=== PATIENT | male | born 1955 | race American Indian/Alaskan Native ===

== ENCOUNTER 2016-09-01 07:30 | Day surgery (SDC) | payer BC ==
[~2016-09-01 07:30] MED LIST: TETRACAINE 0.5% OS PRN
[2016-09-01] MEDS ORDERED: MYDRIACYL ONE (08:00)
[2016-09-01] MEDS: AK-Dilate OS SCH ×3 (09:08→09:21)
[2016-09-01] MEDS: VIGAMOX OS SCH ×3 (09:08→09:20)
[2016-09-01] MEDS: MYDRIACYL OS SCH ×3 (09:09→09:21)
--- NOTE | 2016-09-01 09:43 | Anesthesia Consultation ---
Anesthesia Consult and Med Hx Date of service: 09/01/16 - Airway Anesthetic Teeth Evaluation: Good ROM Head & Neck: Adequate Mental/Hyoid Distance: Adequate Mallampati Class: Class II Intubation Access Assessment: Probably Good - Pulmonary Exam CTA: Yes - Cardiac Exam Cardiac Exam: RRR - Pre-Operative Health Status ASA Pre-Surgery Classification: ASA1 Proposed Anesthetic Plan: MAC - Pulmonary Hx Smoking: No Hx Asthma: No Hx Sleep Apnea: No - Cardiovascular System Hx Hypertension: No Hx Coronary Artery Disease: No - Central Nervous System Hx Seizures: No CVA: No Hx Psychiatric Problems: No - Endocrine Hx Renal Disease: No Hx Cirrhosis: No Hx Insulin Dependent Diabetes: No Hx Thyroid Disease: No - Other Systems Hx Cancer: No
--- NOTE | 2016-09-01 09:43 | Anesthesia Day of Surgery ---
Anesthesia Day of Surgery - Day of Surgery Patient Examined: Yes Patient H&P Reviewed: Yes Patient is NPO: Yes
[2016-09-01] MEDS ORDERED: SUBLIMAZE ONE (10:13)
[2016-09-01] MEDS ORDERED: VERSED ONE (10:14)
[2016-09-01] MEDS ORDERED: NACL 0.9% IR ONE (10:37)
--- NOTE | 2016-09-01 10:57 | Operative Report ---
Operative Report Operative Report: PATIENT'S NAME: DATE OF : DATE OF SURGERY: 09/01/2016 PREOPERATIVE DIAGNOSIS: Cataract left eye POSTOPERATIVE DIAGNOSIS: Same OPERATIVE PROCEDURE: Phacoemulsification with intraocular lens implantation, left eye SURGEON: Adela Kline M.D. ADVANCED CLINICAL SPECIALIST SURGEON: Shahana Lens: AO60 13.5 D ANESTHESIA: Monitored anesthesia care in combination with topical and intracameral anesthesia because of the established specific risk of reflux, arrhythmias, or anxiety attacks associated with ocular manipulation, as well as the difficulty of the credit risk management director to manage such potentially catastrophic events while simultaneously attempting to complete the surgical procedure and was deemed necessary for the patient's safety to have an Cook Helper Vegetable present during the procedure whenever possible. An Cook Helper Vegetable was utilized to regulate the intravenous sedation of the patient so the patient was cooperative yet not asleep in order for the patient to successfully maintain fixation of the eye on the operating light of the microscope. COMPLICATIONS: No surgical complications No blood loss. ALLERGIES: quinine PROGNOSIS: Excellent INDICATIONS FOR SURGERY: The patient is undergoing surgery in the hopes of eliminating or improving these visual difficulties. PROCEDURE: After arriving at the surgery center, the patient was given topical anesthetic and dilating drops, as noted in the record. The patient was then taken into the operating room and given more anesthetic drops. The eyelids , lashes, and lid margins were scrubbed with Betadine solution, and the patient was draped. The Nurse Cook Helper Vegetable administered IV sedation and monitored the patient during the procedure. The eye was then fixated with a 0.12, and a stab incision was made in the peripheral clear cornea into the anterior chamber. This was made on my left side. Viscoelastic was next used to fill the anterior chamber. The eye was once again fixated with the 0.12 forceps and a keratome was used make an incision in clear cornea peripherally on my right hand side temporally. The capsule forceps were used to open the central anterior capsule and then make a continuous round capsulotomy. Hydrodissection was carried out utilizing a cannula and balanced salt solution to delineate the cortical material from the capsule and the nucleus from the cortical material. The phaco tip was introduced into the eye and used to remove the anterior cortical material in the area of the capsulotomy. Then the phaco tip was buried into the nucleus, and a chopping instrument was introduced into the eye and used to provide countertraction in the nucleus between this instrument and the phaco tip fracturing the nucleus. This procedure was repeated multiple times, providing multiple small segments of the lens, and then the phaco tip was used to remove each of these segments. An I/A tip was then used to remove the remaining cortex. The anterior chamber was refilled with viscoelastic. An one-piece, acrylic intraocular lens was then placed into an inserting cartridge. The tip of the inserting cartridge was introduced into the keratome incision and into the anterior chamber. The implant was gently advanced through the cartridge and into the eye, where it unfolded, and both haptics were placed in the capsular bag, where it centered nicely and appeared to be well fixated. After placement of the intraocular lens, the I~and~A handpiece was placed back into the eye and used to remove the viscoelastic, including viscoelastic that was behind the optic of the intraocular lens. The anterior chamber was then filled with balanced salt solution, and hydration of the wound was used to cause swelling of the wound and more appropriate watertight closure. When the wound was found to be firm, the patient was asked to comment on how bright the light was. If there was no light perception at all or if the light was substantially dimmer than during the rest of the surgery, the amount of fluid in the eye was decompressed to lower the intraocular pressure until the patient could see the bright light again. This was done to avoid any damage or decreased blood flow to the optic nerve. MEDICATIONS APPLIED AT END OF SURGERY: One drop of Pred Forte and Vigamox The patient was given a shield to wear at night and was instructed not to rub or push on the eye. DISCHARGE SUMMARY: The patient was released in stable condition. The patient and those with the patient were given a written sheet of postoperative instructions and counseling on any abnormal laboratory studies. The patient is to see us tomorrow for follow-up in the office and is to call immediately for any difficulties. Adela Kline M.D. Date
--- NOTE | 2016-09-01 10:58 | Short Stay Summary ---
Short Stay Documentation Date of service: 09/01/16 - History H&P: obtained from office - Allergies and Medications Current Medications: Allergies quinine Allergy (Verified 08/30/16 13:49) Itching Home Medications Medication Instructions Recorded Confirmed Last Taken Type No Known Home Medications [No 08/30/16 08/30/16 Unknown History Reported Home Medications] Active Medications Moxifloxacin HCl (Vigamox) 1 drops OS Q5MIN MICHELLE Stop: 09/03/16 16:00 Last Admin: 09/01/16 09:20 Dose: 1 drops Phenylephrine HCl (Ak-Dilate) 1 drops OS Q5MIN MICHELLE Stop: 09/01/16 16:00 Last Admin: 09/01/16 09:21 Dose: 1 drops Tetracaine HCl (Tetracaine 0.5%) 1 drops OS Q5M PRN PRN Reason: Analgesia Stop: 09/01/16 16:00 Last Admin: 09/01/16 09:06 Dose: 1 drops Tropicamide (Mydriacyl) 1 drops OS Q5MIN MICHELLE Stop: 09/01/16 16:00 Last Admin: 09/01/16 09:21 Dose: 1 drops - Brief post op/procedure progress note Date of procedure: 09/01/16 Pre-op diagnosis: left cataract Post-op diagnosis: same Procedure: Phacoemulsification with intraocular lens insertion left eye Anesthesia: MAC Surgeon: DEL QUINN Estimated blood loss: none Pathology: none Condition: stable - Disposition Condition at discharge: Good Disposition: DISCHARGED TO HOME OR SELFCARE - Discharge Diagnoses (1) Cataract Status: Acute Short Stay Discharge Plan Follow up with: QUETA VERAS MD [Primary Care Provider] - 7 Days
[2016-09-01 11:21] VITALS: BP 134/86
[2016-09-01] MEDS ORDERED: PRED FORTE 1% OS SCH (12:00)
--- NOTE | 2016-09-01 13:57 | Post Anesthesia Evaluation ---
- Post Anesthesia Evaluation Patient Participated: Yes Airway Patent: Yes Stable Respiratory Function: Yes Nausea/Vomiting: No Temp > 96.8F: Yes Pain Manageable: Yes Adequeate Hydration: Yes Anesthesia Complications: No Block Receding Appropriately: Not Applicable Patient on Ventilator: No
== END 2016-09-01 11:28 | disposition home or self-care (01) ==
LOC: OR 07:30
DX: H26.9 Unspecified cataract (principal)
CPT/HCPCS: 66984; J2250; J3010; V2632

== ENCOUNTER 2018-12-13 11:17 | Emergency (ER) | payer OTHER ==
--- NOTE | 2018-12-13 11:33 | Emergency Department Report ---
Blank Doc - Documentation Documentation: This is a 63-year-old male that presents with left sided chest pain. Denies any radiation. Denies any SOB. This initial assessment/diagnostic orders/clinical plan/treatment(s) is/are subject to change based on patient's health status, clinical progression and re- assessment by fellow clinical providers in the ED. Further treatment and workup at subsequent clinical providers discretion. Patient/guardians urged not to elope from the ED as their condition may be serious if not clinically assessed and managed. Initial orders include: 1- Patient sent to MAIN ED for further evaluation and treatment 2- labs 3- EKG 4- CXR
[2018-12-13 12:03] LABS: Basophils # (Auto) 0.1 K/mm3 (0.0-0.1); Basophils % (Auto) 1.4 % (0.0-1.8); Eosinophils # (Auto) 0.2 K/mm3 (0.0-0.4); Eosinophils % (Auto) 4.2 % (0.0-4.3); Lymphocytes # (Auto) 2.6 K/mm3 (1.2-5.4); Lymphocytes % (Auto) 49.8 % (13.4-35.0); Mean Corpuscular HGB Conc 37 % (32-34); Mean Corpuscular Volume 102 fl (84-94); Monocytes # (Auto) 0.3 K/mm3 (0.0-0.8); Monocytes % (Auto) 5.2 % (0.0-7.3); Platelet Count 238 K/mm3 (140-440); Red Blood Count 3.97 M/mm3 (3.65-5.03); Red Cell Distribution Width 12.1 % (13.2-15.2)
[2018-12-13 12:04] LABS: Hematocrit 40.5 % (35.5-45.6); Hemoglobin 14.8 gm/dl (11.8-15.2)
[2018-12-13 12:13] LABS: INR 0.97 (0.87-1.13); Partial Thromboplastin Time 24.7 Sec. (24.2-36.6)
[2018-12-13 12:18] LABS: BUN/Creatinine Ratio 12; Blood Urea Nitrogen 13 mg/dL (9-20); Calcium 9.1 mg/dL (8.4-10.2); Hemolysis Index 6
--- NOTE | 2018-12-13 13:30 | XRay Report ---
ROUTINE CHEST, TWO VIEWS: Chest pain. PA and lateral views demonstrate the heart and mediastinal contour to be of normal size and shape. The lungs are clear and fully expanded and the soft tissues and bony structures are normal. IMPRESSION: Normal study.
[2018-12-13] MEDS ORDERED: BABY ASPIRIN PO ONE (17:30)
--- NOTE | 2018-12-13 17:30 | Emergency Department Report ---
HPI - General Chief Complaint: Chest Pain Time Seen by Provider: 12/13/18 11:32 - HPI HPI: 63-year-old -[place] male presents to the ED with chest pain chest pain, onset one day prior while at rest, Location: mid chest Radiation: none, Severity now (0-10): 2, Severity at worst (0-10): 8 Duration: 5 minutes characterized as: sharp. The pain is relieved by the time he came to ED. Seen by his PCP who recommended that he continues to the ED, chest pain was accompanied by severely elevated blood pressure. Patient denies exertional pain, patient denies pleuritic pain. Patient denies associated symptoms, such as nausea/vomiting, no diaphoresis, no shortness of breath. ED Past Medical Hx - Past Medical History Hx Hypertension: No Hx GERD: Yes Hx Renal Disease: No Hx Seizures: No Hx Asthma: No Hx HIV: No - Surgical History Past Surgical History?: No - Social History Smoking Status: Never Smoker Substance Use Type: None - Medications Home Medications: Home Medications Medication Instructions Recorded Confirmed Last Taken Type Aspirin [Adult Aspirin] 81 mg PO DAILY #30 tablet. 12/13/18 Unknown Rx Carvedilol [Coreg] 12.5 mg PO BID #60 tablet 12/13/18 Unknown Rx ED Review of Systems ROS: Stated complaint: CHEST PAIN Other details as noted in HPI Comment: All other systems reviewed and negative ENT: denies: throat pain Respiratory: denies: see HPI Cardiovascular: chest pain. denies: dyspnea on exertion, orthopnea Genitourinary: denies: urgency Physical Exam - Physical Exam Vital Signs: Vital Signs 12/13/18 12/13/18 11:33 12:47 Temperature 99.5 F 98.0 F Pulse Rate 69 64 Respiratory 19 12 Rate Blood Pressure 193/100 148/88 [Left] O2 Sat by Pulse 97 99 Oximetry Physical Exam: Physical Exam: - General Limitations: No Limitations General appearance: alert, in no apparent distress. - Head Head exam: Present: atraumatic, normocephalic - Eye Eye exam: Present: normal appearance - ENT ENT exam: Present: mucous membranes moist - Neck Neck exam: Present: normal inspection - Respiratory Respiratory exam: Present: normal lung sounds bilaterally. Absent: respiratory distress - Cardiovascular Cardiovascular Exam: Present: normal rhythm. Absent: systolic murmur, diastolic murmur, rubs, gallop - GI/Abdominal GI/Abdominal exam: Present: soft, normal bowel sounds - Extremities Exam Extremities exam: Present: normal inspection - Back Exam Back exam: Present: normal inspection - Neurological Exam Neurological exam: Present: alert, oriented X3 - Psychiatric Psychiatric exam: normal affect and mood - Skin Skin exam: Present: warm, dry, intact, normal color. Absent: rash ED Course Vital Signs 12/13/18 12/13/18 11:33 12:47 Temperature 99.5 F 98.0 F Pulse Rate 69 64 Respiratory 19 12 Rate Blood Pressure 193/100 148/88 [Left] O2 Sat by Pulse 97 99 Oximetry ED Medical Decision Making - Lab Data Result diagrams: 12/13/18 11:39 12/13/18 11:39 - EKG Data -: EKG Interpreted by Me EKG shows normal: sinus rhythm Rate: normal - EKG Data When compared to previous EKG there are: no significant change Interpretation: no acute changes - Medical Decision Making Troponin negative 1, normal EKG, however I recommended admission for chest pain rule out, patient states he feels better, he wants to go home with some blood pressure medication since he has not been studied therapy for blood pressure.. Give him a prescription for Coreg twice a day, aspirin 81 mg daily, and asked him to follow up with cardiology in the a.m. He voices understanding. Critical care attestation.: If time is entered above; I have spent that time in minutes in the direct care of this critically ill patient, excluding procedure time. ED Disposition Clinical Impression: Chest pain Qualifiers: Chest pain type: other chest pain Qualified Code(s): R07.89 - Other chest pain Disposition: - TO HOME OR SELFCARE Is pt being admited?: No Does the pt Need Aspirin: No Condition: Stable Instructions: Chest Pain (ED) Prescriptions: Aspirin [Adult Aspirin] 81 mg PO DAILY #30 tablet.dr Alanisvedilol [Coreg] 12.5 mg PO BID #60 tablet Referrals: YESENIA OBRIEN MD [Staff Physician] - 24 Hours [place] CHRYSTAL BEST MD [Primary Care Provider] - 3-5 Days
[2018-12-13 17:59] VITALS: BP 139/88
== END 2018-12-13 17:59 | disposition home or self-care (01) ==
LOC: ED 11:17
DX: R07.89 Other chest pain (principal); K21.9 Gastro-esophageal reflux disease without esophagitis; Z79.82 Long term (current) use of aspirin
CPT/HCPCS: 36415; 71046; 80048; 84484; 85025; 85610; 85730; 93005; 93010; 99284

== ENCOUNTER 2019-05-02 10:19 | Day surgery (SDC) | payer BC ==
[~2019-05-02 10:19] MED LIST changes: -TETRACAINE 0.5% OS PRN; +ceFAZolin/STERILE WATER 2 GM/20 ML SYRINGE IV NR
--- NOTE | 2019-05-02 11:49 | Anesthesia Day of Surgery ---
Anesthesia Day of Surgery - Day of Surgery Patient Examined: Yes Patient H&P Reviewed: Yes Patient is NPO: Yes
--- NOTE | 2019-05-02 11:49 | Anesthesia Consultation ---
Anesthesia Consult and Med Hx Date of service: 05/02/19 - Airway Anesthetic Teeth Evaluation: Good ROM Head & Neck: Adequate Mental/Hyoid Distance: Adequate Mallampati Class: Class II Intubation Access Assessment: Good - Pulmonary Exam CTA: Yes - Cardiac Exam Cardiac Exam: RRR - Pre-Operative Health Status ASA Pre-Surgery Classification: ASA2 Proposed Anesthetic Plan: General (HTN, GERD for GA) - Pulmonary Hx Smoking: No Hx Asthma: No Hx Sleep Apnea: No (RUCHI PRE SCREEN HIGH RISK) - Cardiovascular System Hx Hypertension: Yes (TOOK SELF OFF MEDS 2 WEEKS AGO) Hx Coronary Artery Disease: No - Central Nervous System Hx Seizures: No CVA: No Hx Psychiatric Problems: No - Endocrine Hx Renal Disease: No Hx Cirrhosis: No Hx Insulin Dependent Diabetes: No Hx Thyroid Disease: No - Other Systems Hx Cancer: No
[2019-05-02] MEDS ORDERED: HYDROmorphone 1 MG/1 ML INJ IV PRN (11:50)
[2019-05-02] MEDS ORDERED: ONDANSETRON 4 MG/2 ML INJ IV PRN (11:50)
[2019-05-02] MEDS ORDERED: LACTATED RINGERS 1,000 ML IV SCH (12:00)
[2019-05-02] MEDS ORDERED: MIDAZOLAM 2 MG/2 ML INJ IV NR (12:00)
[2019-05-02] MEDS ORDERED: PROPOFOL 200 MG/20 ML VIAL IV ONE (12:08)
[2019-05-02] MEDS ORDERED: LIDOCAINE MPF (2%) 20 MG/1 ML VIAL 5 ML ONE (12:08)
[2019-05-02] MEDS ORDERED: fentaNYL 100 MCG/2 ML INJ ONE (12:08)
[2019-05-02] MEDS ORDERED: dexAMETHasone 20 MG/5 ML VIAL ONE (12:08)
[2019-05-02] MEDS ORDERED: PHENYLEPHRINE/NS 1,000 MCG/10 ML SYRINGE (OR USE) IV ONE (12:08)
[2019-05-02] MEDS ORDERED: ONDANSETRON 4 MG/2 ML INJ ONE (12:08)
--- NOTE | 2019-05-02 13:01 | Short Stay Summary ---
Short Stay Documentation Date of service: 05/02/19 - History H&P: obtained from office - Allergies and Medications Current Medications: Allergies quinine Allergy (Verified 12/13/18 11:20) Itching Home Medications Medication Instructions Recorded Confirmed Last Taken Type Acetaminophen [Tylenol] 500 mg PO PRN PRN 04/30/19 04/30/19 Unknown History Active Medications Cefazolin Sodium (Ancef/Sterile Water 2 Gm/20 Ml) 2 gm IV PREOP NR Stop: 05/02/19 23:59 Hydromorphone HCl (Dilaudid) 0.5 mg IV Q10MIN PRN PRN Reason: Pain , Severe (7-10) Lactated Ringer's (Lactated Ringers) 1,000 mls @ 100 mls/hr IV DIRECT MICHELLE Last Admin: 05/02/19 12:00 Dose: 100 mls/hr Documented by: Midazolam HCl (Versed) 2 mg IV PREOP NR Stop: 05/02/19 23:59 Ondansetron HCl (Zofran) 4 mg IV ONCE PRN PRN Reason: Nausea And Vomiting - Brief post op/procedure progress note Date of procedure: 05/02/19 Pre-op diagnosis: rt renal stone Post-op diagnosis: same Procedure: ESWL Anesthesia: GETA Surgeon: SUKUMAR ELDRIDGE Condition: stable - Hospital course Hospital course: norco & post op info on chart - Disposition Condition at discharge: Stable Disposition: DC-01 TO HOME OR SELFCARE Short Stay Discharge Plan Follow up with: CHRYSTAL OROZCO MD [Primary Care Provider] - 7 Days
--- NOTE | 2019-05-02 13:08 | Operative Report ---
PREOPERATIVE DIAGNOSES: Bilateral renal stones, right renal colic. POSTOPERATIVE DIAGNOSES: Bilateral renal stones, right renal colic. PROCEDURE: Right extracorporal shock wave lithotripsy, staged procedure. SURGEON: Dr. Lea. ANESTHESIA: General. ESTIMATED BLOOD LOSS: Minimal. FLUIDS: Crystalloid. COMPLICATIONS: No complications. INDICATIONS: This patient is a 63-year-old gentleman seen in the office with right flank pain. He had CT abdomen and pelvis on 04/23/2019 this year, which revealed 6 mm stones bilaterally. Risks, benefits, and complications were explained. The patient agreed to proceed with surgical intervention. DESCRIPTION OF PROCEDURE: The patient was taken to the operative suite, placed in a supine position. After adequate general anesthesia, the stone was localized in 2 planes using fluoroscopy. Extracorporal shock wave lithotripsy was administered with a maximum kV of 8 and 2500 shocks, 5-minute renal pause after 200 shocks was performed. The patient tolerated the procedure well. Adequate fragmentation could be appreciated. He was given a prescription for Berkley. He is to follow up in the office. JOB# [id number] C/NTS
[2019-05-02] MEDS ORDERED: HYDROcodone/ACETAMINOPHEN 5-325 MG TAB PO PRN (13:23)
[2019-05-02 14:03] VITALS: BP 137/89
== END 2019-05-02 14:40 | disposition home or self-care (01) ==
LOC: OR 10:19
PROVIDERS: ATTEND Urology
DX: N20.0 Calculus of kidney (principal); I10 Essential (primary) hypertension; K21.9 Gastro-esophageal reflux disease without esophagitis; H40.9 Unspecified glaucoma; N40.1 Benign prostatic hyperplasia with lower urinary tract symptoms; N52.01 Erectile dysfunction due to arterial insufficiency; Z79.899 Other long term (current) drug therapy; Z98.49 Cataract extraction status, unspecified eye; Z98.890 Other specified postprocedural states; Z88.8 Allergy status to other drugs, medicaments and biological substances
CPT/HCPCS: 50590; J0690; J1100; J2370; J2405; J2704; J3010; J7120; J1170

== ENCOUNTER 2020-09-09 08:13 | Day surgery (SDC) | payer BC ==
[~2020-09-09 08:13] MED LIST changes: +LACTATED RINGERS 1,000 ML IV SCH; +MIDAZOLAM 2 MG/2 ML INJ IV NR; -ceFAZolin/STERILE WATER 2 GM/20 ML SYRINGE IV NR
[2020-09-09] MEDS ORDERED: HYDROcodone/ACETAMINOPHEN 5-325 MG TAB PO PRN (09:56)
[2020-09-09] MEDS ORDERED: HYDROmorphone 1 MG/1 ML INJ IV PRN (09:56)
[2020-09-09] MEDS ORDERED: ONDANSETRON 4 MG/2 ML INJ IV PRN (09:56)
--- NOTE | 2020-09-09 09:56 | Anesthesia Day of Surgery ---
Anesthesia Day of Surgery - Day of Surgery Patient Examined: Yes Patient H&P Reviewed: Yes Patient is NPO: Yes
--- NOTE | 2020-09-09 09:56 | Anesthesia Consultation ---
Anesthesia Consult and Med Hx Date of service: 09/09/20 - Airway Anesthetic Teeth Evaluation: Good ROM Head & Neck: Adequate Mental/Hyoid Distance: Adequate Mallampati Class: Class III Intubation Access Assessment: Possibly Difficult - Pre-Operative Health Status ASA Pre-Surgery Classification: ASA2 Proposed Anesthetic Plan: General - Pulmonary Hx Smoking: No Hx Respiratory Symptoms: No Hx Sleep Apnea: No (RUCHI PRE SCREEN HIGH RISK) - Cardiovascular System Hx Hypertension: Yes (took himself off antihypertensives) Hx Heart Attack/AMI: No - Central Nervous System CVA: No - Endocrine Hx Renal Disease: No Hx Liver Disease: No Hx Insulin Dependent Diabetes: No Hx Non-Insulin Dependent Diabetes: No Hx Thyroid Disease: No
[2020-09-09] MEDS ORDERED: propofoL 200 MG/20 ML VIAL IV ONE (11:16)
[2020-09-09] MEDS ORDERED: ONDANSETRON 4 MG/2 ML INJ ONE (11:16)
[2020-09-09] MEDS ORDERED: LIDOCAINE MPF (2%) 20 MG/1 ML VIAL 5 ML ONE (11:16)
[2020-09-09] MEDS ORDERED: fentaNYL 100 MCG/2 ML INJ ONE (11:41)
[2020-09-09] MEDS ORDERED: ceFAZolin/Water 2 GM/20 ML 2 GM/20 ML SYRINGE IV NR (12:00)
[2020-09-09] MEDS ORDERED: dexAMETHasone 20 MG/5 ML VIAL ONE (12:28)
[2020-09-09] MEDS ORDERED: KETOROLAC 30 MG/1 ML INJ ONE (12:28)
--- NOTE | 2020-09-09 12:29 | Short Stay Summary ---
Short Stay Documentation Date of service: 09/09/20 - History H&P: obtained from office - Allergies and Medications Current Medications: Allergies quinine Allergy (Verified 12/13/18 11:20) Itching Home Medications Medication Instructions Recorded Confirmed Last Taken Type Multivitamin [One-Daily 1 tab PO DAILY 09/07/20 09/07/20 09/07/20 History Multi-Vitamin] [place]-3/Dha/Epa/Fish Oil [[place] 3 1 cap PO DAILY 09/07/20 09/07/20 09/07/20 History 500 Softgel] Saw/Vit E/Sod Barbara/Lyc/Beta/Pyg 1 tab PO DAILY 09/07/20 09/07/20 09/07/20 History [Prostate Health Caplet] Tamsulosin [Flomax] 0.4 mg PO QDAY 09/07/20 09/09/20 09/08/20 History Turmeric 1 cap PO DAILY 09/07/20 09/07/20 09/07/20 History Active Medications Hydrocodone Bitart/Acetaminophen (Hydrocodone/Acetaminophen 5-325 Mg Tab) 2 each PO ONCE PRN PRN Reason: Pain, Moderate (4-6) Stop: 09/09/20 16:00 Hydromorphone HCl (Hydromorphone 1 Mg/1 Ml Inj) 0.5 mg IV Q10MIN PRN PRN Reason: Pain , Severe (7-10) Stop: 09/09/20 23:00 Lactated Ringer's (Lactated Ringers) 1,000 mls @ 100 mls/hr IV DIRECT MICHELLE Stop: 09/09/20 23:59 Last Admin: 09/09/20 09:50 Dose: 100 mls/hr Documented by: Cefazolin Sodium (Ancef/Sterile Water 2 Gm/20 Ml) 2 gm in 20 mls @ 80 mls/hr IV PREOP NR; Protocol Stop: 09/09/20 16:00 Midazolam HCl (Midazolam 2 Mg/2 Ml Inj) 2 mg IV PREOP NR Stop: 09/09/20 21:00 Last Admin: 09/09/20 11:09 Dose: 2 mg Documented by: Ondansetron HCl (Ondansetron 4 Mg/2 Ml Inj) 4 mg IV ONCE PRN PRN Reason: Nausea And Vomiting Stop: 09/09/20 18:00 - Brief post op/procedure progress note Date of procedure: 09/09/20 Pre-op diagnosis: baldder stone 2cm Post-op diagnosis: same Procedure: cysto, rpg, laser bladder stone Anesthesia: GETA Surgeon: SUKUMAR ELDRIDGE Condition: stable - Hospital course Hospital course: macrobid & norco on chart - Disposition Condition at discharge: Stable Disposition: DC-01 TO HOME OR SELFCARE Short Stay Discharge Plan Follow up with: CHRYSTAL OROZCO MD [Primary Care Provider] - 7 Days
--- NOTE | 2020-09-09 13:13 | Operative Report ---
PREOPERATIVE DIAGNOSIS: Bladder stone, 2 cm. POSTOPERATIVE DIAGNOSIS: Bladder stone, 2 cm. PROCEDURE: Cystoscopy, bilateral retrograde pyelograms, holmium laser ablation of bladder stone and extraction. SURGEON: Valdo Lea MD ANESTHESIA: General. ESTIMATED BLOOD LOSS: Minimal. FLUIDS: Crystalloid. COMPLICATIONS: No complications. INDICATIONS: This patient is a 65-year-old gentleman known to our service, had an episode of hematuria and voiding dysfunction. CT abdomen and pelvis revealed a bladder stone. Cystoscopy in the office was too big to extract. He presents now for intervention. DESCRIPTION OF PROCEDURE: The patient was taken to the operative suite, placed in a supine position. After adequate general anesthesia, placed in a dorsal lithotomy position, prepped and draped in a sterile fashion. Pancystourethroscopy was performed with a 21-Azeri Storz cystoscope. No urethral abnormalities. His prostate was nonobstructing. Bladder, obvious yellow 2 cm stone. No tumors noted. Bilateral retrograde pyelograms were obtained with an 8-Azeri [place] catheter and 8 mL of contrast. No filling defects or obstruction. Next, using a 200 micron holmium fiber lithotripsy, starting at 4 lowe going up to 10 lowe, adequate fragmentation could be appreciated. The fragments were removed. We will give one to the patient. I will send another for analysis. He was extubated. Rectal exam was benign. He was taken to recovery room in stable condition. He will go home on [employer]. JOB# [id number] [facility]/NTS
--- NOTE | 2020-09-09 13:20 | Fluoroscopy Report ---
FLUOROSCOPY RETROGRADE UROGRAPHY HISTORY: Hematuria, bladder calculus FINDINGS: Fluoroscopy was provided by radiology during retrograde urography by the urologist. There i s normal filling of both renal collecting systems. No filling defect or abnormal dilatation is identi fied. IMPRESSION: Unremarkable bilateral retrograde pyelograms Fluoroscopy time: 0.1 minutes Fluoroscopic images: 5 Signer Name: Dayton Rodriguez Jr, MD Signed: 09/09/2020 1:15 PM Workstation Name: [id number]
[2020-09-09 13:30] VITALS: BP 126/83
--- NOTE | 2020-09-09 16:44 | Post Anesthesia Evaluation ---
- Post Anesthesia Evaluation Patient Participated: Yes Airway Patent: Yes Stable Respiratory Function: Yes Nausea/Vomiting: No Temp > 96.8F: Yes Pain Manageable: Yes Adequeate Hydration: Yes Anesthesia Complications: No
== END 2020-09-09 08:14 | disposition home or self-care (01) ==
LOC: OR 08:13
PROVIDERS: ATTEND Urology
DX: N21.0 Calculus in bladder (principal); H40.9 Unspecified glaucoma; I11.0 Hypertensive heart disease with heart failure; I50.9 Heart failure, unspecified; K21.9 Gastro-esophageal reflux disease without esophagitis; Z98.41 Cataract extraction status, right eye; Z79.899 Other long term (current) drug therapy; Z87.442 Personal history of urinary calculi; Z88.8 Allergy status to other drugs, medicaments and biological substances; Z98.42 Cataract extraction status, left eye; Z98.890 Other specified postprocedural states
CPT/HCPCS: 52317; 74420; C1758; J0690; J1100; J1885; J2250; J2405; J2704; J3010; J7120; Q9967